=== PATIENT | male | born 1990 | race African-American/Black ===

== ENCOUNTER 2024-04-27 04:54 | Emergency (ER) | payer MEDICAID ==
[~2024-04-27] VITALS: Ht 177.8 cm; Wt 91.4 kg
[2024-04-27 04:57] VITALS: PULSE 105; O2SAT 96
[2024-04-27 05:09] VITALS: BP 115/67; RESP 19; TEMP 98; O2SAT 100
[2024-04-27] MEDS ORDERED: DOXYCYCLINE HYCLATE 100MG CAPSULE PO ONE (05:30)
[2024-04-27] MEDS ORDERED: DOXY100C5 MT (05:32)
[2024-04-27] MEDS: CEFTRIAXONE SODIUM 500MG VIAL IM ONE (05:49)
[2024-04-27] MEDS: DOXYCYCLINE HYCLATE 100MG CAPSULE PO NR (05:55)
== END 2024-04-27 05:57 | disposition home or self-care (01) ==
LOC: ER 05:14
DX: A64 Unspecified sexually transmitted disease (principal)
CPT/HCPCS: 99283; 96372; J0696; 99284

== ENCOUNTER 2024-06-24 03:34 | Emergency (ER) | payer MEDICAID ==
[~2024-06-24] VITALS: Ht 177.8 cm; Wt 94.6 kg
[~2024-06-24 03:34] MED LIST: DOXY100C5 MT
[2024-06-24 03:51] VITALS: O2SAT 100
[2024-06-24 04:35] VITALS: BP 145/86; PULSE 61; RESP 16; TEMP 36.89184; O2SAT 100
[2024-06-24] MEDS ORDERED: DOXY100C5 MT (05:17)
[2024-06-24] MEDS: CEFTRIAXONE SODIUM 500MG VIAL IM ONE (05:53)
[2024-06-24] MEDS: DOXYCYCLINE HYCLATE 100MG CAPSULE PO ONE (05:53)
== END 2024-06-24 06:14 | disposition home or self-care (01) ==
LOC: ER 03:34
DX: A64 Unspecified sexually transmitted disease (principal); Z98.890 Other specified postprocedural states
CPT/HCPCS: 99283; 96372; J0696

== ENCOUNTER 2024-12-30 00:26 | Emergency (ER) | payer MEDICAID ==
[~2024-12-30] VITALS: Ht 177.8 cm; Wt 87.8 kg
[2024-12-30 00:39] VITALS: O2SAT 99
[2024-12-30 01:04] VITALS: BP 135/88; PULSE 84; RESP 18; TEMP 37.1; O2SAT 100
[2024-12-30] MEDS: CEFTRIAXONE SODIUM 500MG VIAL IM ONE (01:57)
[2024-12-30] MEDS ORDERED: DOXY100C5 MT (04:28)
[2024-12-30 04:46] LABS: CLARITY URINE CLOUDY (CLEAR); COLOR URINE YELLOW (YELLOW); GLUCOSE URINE NEGATIVE (NEGATIVE); KETONES URINE TRACE (NEGATIVE); LEUKOCYTE ESTERASE URINE NEGATIVE (NEGATIVE); NITRITE URINE NEGATIVE (NEGATIVE); OCCULT BLOOD URINE NEGATIVE (NEGATIVE); PH URINE 5.0 (4.5-8.0); PROTEIN URINE TRACE (NEGATIVE); SPECIFIC GRAVITY URINE 1.030 (1.005-1.030); UROBILINOGEN URINE 0.2 E.U./dL (0.2-1.0)
[2024-12-30 04:53] LABS: *AMPHETAMINES SCREEN URINE PRESUMPTIVE POSITIVE (NEGATIVE); *BARBITURATES SCREEN URINE NEGATIVE (NEGATIVE); *BENZODIAZEPINES SCREEN URINE NEGATIVE (NEGATIVE); *COCAINE SCREEN URINE NEGATIVE (NEGATIVE); METHADONE URINE SCREEN NEGATIVE (NEGATIVE)
[2024-12-30 04:54] LABS: CANNABINOID URINE SCREEN PRESUMPTIVE POSITIVE (NEGATIVE); ECSTASY MDMA SCREEN URINE CONF.TEST INDICATED (NEGATIVE); OPIATES URINE SCREEN NEGATIVE (NEGATIVE); PHENCYCLIDINE URINE SCREEN NEGATIVE (NEGATIVE)
[2024-12-30 06:36] LABS: BACTERIA URINE TRACE; RBC URINE NONE SEEN /hpf (0-2); SQUAMOUS EPITHELIAL CELL URINE NONE SEEN /lpf (RARE/1+); WBC URINE NONE SEEN /hpf (0-2)
[2024-12-30 06:38] LABS: URIC ACID CRYSTALS URINE 3+ /lpf
[2025-01-01 04:10] LABS: CHLAMYDIA TRACHOMATIS NAA Negative (Negative); NEISSERIA GONORRHOEAE NAA Negative (Negative)
== END 2024-12-30 04:41 | disposition home or self-care (01) ==
LOC: ER 00:32
DX: A64 Unspecified sexually transmitted disease (principal); Z11.3 Encounter for screening for infections with a predominantly sexual mode of transmission
CPT/HCPCS: 99283; 87491; 87591; 80305; 96372; 81003; J0696

== ENCOUNTER 2025-01-04 02:16 | Emergency (ER) | payer MEDICAID ==
[2025-01-04 02:23] VITALS: PULSE 90; RESP 20; O2SAT 98
[2025-01-04] MEDS ORDERED: NAPR-1176 MT (05:02)
[2025-01-04] MEDS ORDERED: LIDO-53 TP (05:02)
== END 2025-01-04 03:24 | disposition left against medical advice (07) ==
LOC: ER 02:16
DX: M25.562 Pain in left knee (principal); Z53.21 Procedure and treatment not carried out due to patient leaving prior to being seen by health care provider

== ENCOUNTER 2025-01-04 04:14 | Emergency (ER) | payer MEDICAID ==
[~2025-01-04] VITALS: Ht 177.8 cm; Wt 94.0 kg
[2025-01-04 04:29] VITALS: TEMP 36.8
[2025-01-04] MEDS ORDERED: LIDO-53 TP (05:02)
[2025-01-04] MEDS ORDERED: NAPR-1176 MT (05:02)
[2025-01-04] MEDS: KETOROLAC 15MG/ML VIAL IM ONE (05:21)
[2025-01-04 05:22] VITALS: BP 137/85; PULSE 76; RESP 18; O2SAT 99
== END 2025-01-04 05:26 | disposition home or self-care (01) ==
LOC: ER 04:41
DX: M25.569 Pain in unspecified knee (principal)
CPT/HCPCS: 99283; 96372; J1885